=== PATIENT | male | born 1985 | race African-American/Black ===

== ENCOUNTER 2020-06-15 07:23 | Emergency (ER) | payer MEDICAID ==
[~2020-06-15] VITALS: Ht 190.5 cm; Wt 76.0 kg
[2020-06-15] MEDS ORDERED: AMOXICILLIN/POTASSIUM CLAVULANATE 875/125MG TAB PO STA (08:21)
[2020-06-15] MEDS ORDERED: KETOROLAC 60MG/2ML VIAL IM STA (08:21)
[2020-06-15] MEDS ORDERED: ACETAMINOPHEN WITH CODEINE 300/30MG TABLET PO STA (08:24)
[2020-06-15 08:32] VITALS: BP 133/81
[2020-06-15] MEDS ORDERED: AMOX-424 PO (08:38)
[2020-06-15] MEDS ORDERED: IBUP-2030 PO (08:38)
== END 2020-06-15 08:55 | disposition home or self-care (01) ==
LOC: ER 07:23
DX: K02.9 Dental caries, unspecified (principal); Z89.9 Acquired absence of limb, unspecified
CPT/HCPCS: 99283